=== PATIENT | female | born 1975 | race Caucasian/White ===

== ENCOUNTER → 2017-03-07 | Outpatient (CLI) | payer BC ==
[2006-03-21 07:05] VITALS: PULSE 84; TEMP 98.1
[~2017-03-07] MED LIST: BIRTH CONTROL; CEFTIN500 MG PO; MAREPA1200 MG PO; MEDROL 4MG DOSPA4 MG PO; MULTIVITAMIN FO1 CAP PO; NORCO 325 MG-51 TAB PO; PRENATAL VITAMI1 TA5 PO; PRENATAL1 TA1 PO
== END ==
LOC: MC.RAD 14:52
DX: Z12.31 Encounter for screening mammogram for malignant neoplasm of breast (principal); N64.89 Other specified disorders of breast

== ENCOUNTER → 2017-03-14 | Outpatient (CLI) | payer BC ==
[2006-03-21 07:05] VITALS: PULSE 84; TEMP 98.1
== END ==
LOC: MC.RAD 03-13 13:00
DX: Z12.39 Encounter for other screening for malignant neoplasm of breast (principal)

== ENCOUNTER → 2017-09-17 | Outpatient (CLI) | payer BC ==
[2006-03-21 07:05] VITALS: PULSE 84; TEMP 98.1
== END ==
LOC: MC.RAD 14:00
DX: R92.2 Inconclusive mammogram (principal)

== ENCOUNTER → 2018-11-06 | Outpatient (CLI) | payer BC ==
[2006-03-21 07:05] VITALS: PULSE 84; TEMP 98.1
== END ==
LOC: MC.RAD 13:51
DX: Z12.31 Encounter for screening mammogram for malignant neoplasm of breast (principal)

== ENCOUNTER → 2020-06-05 | Outpatient (CLI) | payer BC ==
[2006-03-21 07:05] VITALS: PULSE 84; TEMP 98.1
== END ==
LOC: MC.RAD 07:43
DX: Z12.31 Encounter for screening mammogram for malignant neoplasm of breast (principal); N63.10 Unspecified lump in the right breast, unspecified quadrant

== ENCOUNTER → 2020-06-12 | Outpatient (CLI) | payer BC ==
[2006-03-21 07:05] VITALS: PULSE 84; TEMP 98.1
== END ==
LOC: MC.RAD 10:55
DX: N63.10 Unspecified lump in the right breast, unspecified quadrant (principal)

== ENCOUNTER → 2021-01-19 | Outpatient (CLI) | payer BC ==
[2006-03-21 07:05] VITALS: PULSE 84; TEMP 98.1
== END ==
LOC: MC.RAD 08:00
DX: N63.10 Unspecified lump in the right breast, unspecified quadrant (principal)

== ENCOUNTER → 2021-08-31 | Outpatient (CLI) | payer BC ==
[2006-03-21 07:05] VITALS: PULSE 84; TEMP 98.1
== END ==
LOC: MC.RAD 08:19
DX: Z12.31 Encounter for screening mammogram for malignant neoplasm of breast (principal)

== ENCOUNTER → 2023-01-01 | Outpatient (CLI) | payer BC ==
[2006-03-21 07:05] VITALS: PULSE 84; TEMP 98.1
== END ==
LOC: MC.RAD 08:55
DX: Z12.31 Encounter for screening mammogram for malignant neoplasm of breast (principal)